=== PATIENT | male | born 1990 | race Two or more races ===

== ENCOUNTER 2024-07-28 13:18 | Emergency (ER) | payer SELFPAY ==
[2024-07-28 13:25] VITALS: BMI 36.3
[2024-07-28] MEDS ORDERED: FENTANYL CITRATE/PF 50 MCG/ML VIAL ONE ×3 (13:52→16:06)
[2024-07-28 15:32] LABS: HCV DIAGNOSTIC IN-HOUSE W/RFLX NON-REACTIVE (NONREACTIVE); HIV INTERPRETATION NEGATIVE (NEGATIVE)
[2024-07-28] MEDS ORDERED: KETOROLAC TROMETHAMINE 15 MG/ML VIAL ONE (17:55)
[2024-07-28] MEDS: KETOROLAC TROMETHAMINE 15 MG/ML VIAL IVPUSH ONE (18:07)
[2024-07-28 18:20] VITALS: BP 114/67; PULSE 94; RESP 16
[2024-07-28] MEDS ORDERED: oxyCODONE HCL 5 MG TABLET ONE (18:22)
[2024-07-28] MEDS: oxyCODONE HCL 5 MG TABLET PO ONE (18:24)
[2024-07-28 18:26] VITALS: TEMP 98.6
== END 2024-07-28 18:49 | disposition home or self-care (01) ==
LOC: JER 13:18
PROC: 3E033NZ Introduction of Analgesics, Hypnotics, Sedatives into Peripheral Vein, Percutaneous Approach (ICD-10-PCS; principal; 2024-07-28)
PROC: 3E033NZ Introduction of Analgesics, Hypnotics, Sedatives into Peripheral Vein, Percutaneous Approach (ICD-10-PCS; 2024-07-28)
PROC: 3E033NZ Introduction of Analgesics, Hypnotics, Sedatives into Peripheral Vein, Percutaneous Approach (ICD-10-PCS; 2024-07-28)
PROC: 3E0333Z Introduction of Anti-inflammatory into Peripheral Vein, Percutaneous Approach (ICD-10-PCS; 2024-07-28)
DX: M54.50 Low back pain, unspecified (principal); W11.XXXA Fall on and from ladder, initial encounter
CPT/HCPCS: 36415; 70450-TC; 72125-TC; 72128-TC; 72131-TC; 72170-TC-FY; 86803; 87389; 99285-25